=== PATIENT | female | born 1965 | race African-American/Black ===

== ENCOUNTER → 2016-10-09 | Outpatient (CLI) | payer MEDICAID ==
[~2016-10-09] MED LIST: ALBUTEROL0.83 MG/ML IH; AMBIEN 5MG TABLE5 MG; MOTRIN 800800 MG/TAB PO; MULTI VITAMINS1 TAB PO; NEURONTIN600 MG/TAB PO; NEURONTIN800 MG/TAB PO; NORCO 325 MG-51 TAB PO; PERCOCET 325 MG1 TA2 PO; PREDNISONE20 MG PO; PRINZIDE 12.5 M1 TAB PO; PROVENTIL0.09 MG/A1 IH; VALIUM 5MG T5 MG/TAB PO; WELLBUTRIN SR150 M1 PO; ZITHROMAX Z PA250 MG PO
== END ==
LOC: COL.RAD 09:06
DX: M25.562 Pain in left knee (principal)

== ENCOUNTER 2018-06-17 13:51 | Emergency (ER) | payer MEDICARE ==
[~2018-06-17] VITALS: Ht 167.6 cm; Wt 95.0 kg
[2018-06-17 14:06] VITALS: TEMP 98.2
[2018-06-17] MEDS ORDERED: NORCO 325 MG-51 TAB PO (16:11)
[2018-06-17] MEDS ORDERED: CRUTCHES MC (16:12)
[2018-06-17 17:17] VITALS: BP 123/73; PULSE 84
== END 2018-06-17 17:17 | disposition home or self-care (01) ==
LOC: COL.ER 13:51
DX: M25.562 Pain in left knee (principal); M19.90 Unspecified osteoarthritis, unspecified site; Z98.890 Other specified postprocedural states
CPT/HCPCS: J1885; J2360; L1846

== ENCOUNTER 2019-02-17 12:45 | Outpatient (RCR) | payer MEDICARE ==
[~2019-02-17 12:45] MED LIST changes: +CRUTCHES MC
== END 2019-03-16 | disposition still patient (30) ==
LOC: WSPT
DX: Z47.1 Aftercare following joint replacement surgery (principal); Z96.652 Presence of left artificial knee joint

== ENCOUNTER 2019-03-23 08:00 | Outpatient (RCR) | payer MEDICARE | END 2019-06-21 | disposition home or self-care (01) | LOC: WSPT | DX: Z96.652 Presence of left artificial knee joint (principal) ==

== ENCOUNTER 2021-11-17 14:04 | Emergency (ER) | payer MEDICARE ==
[~2021-11-17] VITALS: Ht 152.4 cm; Wt 109.1 kg
[2021-11-17 14:41] VITALS: TEMP 98
[2021-11-17] MEDS ORDERED: CEPHALEXIN500 M1 PO (15:52)
[2021-11-17] MEDS ORDERED: NORCO 325 MG-51 TAB PO (15:52)
[2021-11-17 16:15] VITALS: BP 129/88; PULSE 62
== END 2021-11-17 16:15 | disposition home or self-care (01) ==
LOC: COL.ER 14:04
DX: S62.522A Displaced fracture of distal phalanx of left thumb, initial encounter for closed fracture (principal); F17.200 Nicotine dependence, unspecified, uncomplicated; W23.1XXA Caught, crushed, jammed, or pinched between stationary objects, initial encounter

== ENCOUNTER 2023-09-01 12:48 | Emergency (ER) | payer OTHER ==
[~2023-09-01] VITALS: Ht 167.6 cm; Wt 95.5 kg
[~2023-09-01 12:48] MED LIST changes: +CEPHALEXIN500 M1 PO
[2023-09-01 12:54] VITALS: BP 160/94
[2023-09-01] MEDS ORDERED: PREDNISONE50 MG PO (13:28)
[2023-09-01] MEDS ORDERED: NORCO 325 MG-51 TAB PO (13:28)
[2023-09-01 13:41] VITALS: PULSE 70; TEMP 98.6
[2023-09-03] MEDS ORDERED: NORCO 325 MG-51 TAB PO (16:23)
== END 2023-09-01 13:41 | disposition home or self-care (01) ==
LOC: COL.ER 12:48
DX: M25.461 Effusion, right knee (principal); F17.200 Nicotine dependence, unspecified, uncomplicated